=== PATIENT | male | born 1960 | race Caucasian/White ===

== ENCOUNTER 2023-04-10 00:25 | Emergency (ER) | payer MEDICAID, OTHER ==
[~2023-04-10] VITALS: Ht 170.2 cm; Wt 100.0 kg
[2023-04-10 00:35] VITALS: TEMP 98.8; O2SAT 100
[2023-04-10] MEDS ORDERED: KETOROLAC 30MG/ML VIAL IM ONE (01:45)
[2023-04-10 02:18] VITALS: BP 157/90; PULSE 85; RESP 18
== END 2023-04-10 02:32 | disposition left against medical advice (07) ==
LOC: ER 00:25
DX: S09.90XA Unspecified injury of head, initial encounter (principal); E78.00 Pure hypercholesterolemia, unspecified; I10 Essential (primary) hypertension; I25.2 Old myocardial infarction; Z86.73 Personal history of transient ischemic attack (TIA), and cerebral infarction without residual deficits; Y08.89XA Assault by other specified means, initial encounter; Y93.89 Activity, other specified; Y92.89 Other specified places as the place of occurrence of the external cause; Y99.8 Other external cause status
CPT/HCPCS: 99283; 96372; J1885

== ENCOUNTER 2024-06-04 01:56 | Emergency (ER) | payer MEDICAID, OTHER ==
[~2024-06-04] VITALS: Ht 170.2 cm; Wt 78.0 kg
[2024-06-04 01:58] VITALS: O2SAT 97
[2024-06-04] MEDS: SODIUM CHLORIDE 0.9% (SEPSIS BOLUS) IV ONE (02:20)
[2024-06-04 02:25] LABS: BASOPHILS % 0.8 % (0.0-2.0); EOSINOPHILS % 0.2 % (0.0-5.0); HEMATOCRIT. 39.3 % (42.0-52.0); HEMOGLOBIN. 12.8 g/dL (14.0-18.0); LYMPHOCYTES % 7.3 % (20.0-50.0); MEAN CORPUSCULAR HEMOGLOBIN 26.8 pg (28.0-32.0); MEAN CORPUSCULAR HGB CONC 32.6 g/dL (31.0-37.0); MEAN CORPUSCULAR VOLUME 82.1 fL (80.0-94.0); MEAN PLATELET VOLUME 8.4 fl (7.4-10.4); MONOCYTES % 7.4 % (2.0-8.0); NEUTROPHILS % 84.3 % (40.0-76.0); PLATELET 276 x1000/uL (130-400); RED BLOOD CELL COUNT 4.78 mill/uL (4.7-6.1); RED CELL DISTRIBUTION WIDTH 16.2 % (11.6-14.6); WHITE BLOOD COUNT 15.4 x1000/uL (4.5-11.0)
[2024-06-04 02:27] LABS: CARBON DIOXIDE 20 mEq/L (21-32); CHLORIDE 103 mEq/L (98-107); SODIUM 136 mEq/L (136-145)
[2024-06-04 02:28] LABS: CALCIUM 9.7 mg/dL (8.7-10.4)
[2024-06-04 02:33] LABS: CREATININE 0.9 mg/dL (0.6-1.3); GLUCOSE 193 mg/dL (70-105); UREA NITROGEN BLOOD 18 mg/dL (9-23)
[2024-06-04] MEDS: CEFTRIAXONE 1GM/50ML 50 ML IV ONE (02:33)
[2024-06-04 02:34] LABS: ALANINE AMINOTRANSFERASE 13 IU/L (10-49)
[2024-06-04 02:35] LABS: ALBUMIN 4.1 g/dL (3.2-4.8); ASPARTATE AMINOTRANSFERASE 17 IU/L (<34); BILIRUBIN DIRECT 0.8 mg/dL (<=3.0); BILIRUBIN TOTAL 2.2 mg/dL (0.1-1.0); LACTIC ACID 2.8 mmol/L (0.4-2.0)
[2024-06-04 02:36] LABS: INR 1.2; PROTHROMBIN TIME 13.1 sec (9.6-11.0)
[2024-06-04] MEDS: KETOROLAC 30MG/ML VIAL IV STA (02:38)
[2024-06-04] MEDS: ACETAMINOPHEN 325MG TABLET PO STA (02:41)
[2024-06-04] MEDS: VANCOMYCIN 1G PREMIX 200 ML IV ONE (03:13)
[2024-06-04 04:00] VITALS: TEMP 37.28076
[2024-06-04 04:54] LABS: CLARITY URINE CLEAR (CLEAR); COLOR URINE YELLOW (YELLOW); GLUCOSE URINE 3+ (NEGATIVE); KETONES URINE 3+ (NEGATIVE); LEUKOCYTE ESTERASE URINE NEGATIVE (NEGATIVE); NITRITE URINE NEGATIVE (NEGATIVE); OCCULT BLOOD URINE NEGATIVE (NEGATIVE); PH URINE 5.5 (4.5-8.0); PROTEIN URINE TRACE (NEGATIVE); SPECIFIC GRAVITY URINE 1.037 (1.005-1.030); UROBILINOGEN URINE 0.2 E.U./dL (0.2-1.0)
[2024-06-04 05:41] LABS: BACTERIA URINE NONE SEEN; RBC URINE 0-2 /hpf (0-2); SQUAMOUS EPITHELIAL CELL URINE FEW /lpf (RARE/1+); WBC URINE 0-2 /hpf (0-2)
[2024-06-04 07:41] VITALS: BP 139/77; PULSE 100; RESP 20; O2SAT 98
== END 2024-06-04 07:59 | disposition short-term general hospital (02) ==
LOC: ER 02:07
DX: A41.9 Sepsis, unspecified organism (principal); T81.40XA Infection following a procedure, unspecified, initial encounter; E78.00 Pure hypercholesterolemia, unspecified; I10 Essential (primary) hypertension; I25.2 Old myocardial infarction; Z86.73 Personal history of transient ischemic attack (TIA), and cerebral infarction without residual deficits; Z96.651 Presence of right artificial knee joint
CPT/HCPCS: 80076; 80048; 81003; 83605; 85025; 85610; 87040; 36415; 84145; 71045; 73560; 93005; 96367; 96365; 96375; 99285; J0696; J1885; J3370; J7030; Z7610 ×2